=== PATIENT | male | born 1960 | race Caucasian/White ===

== ENCOUNTER 2022-12-12 13:04 | Inpatient (IN) | payer MEDICAID ==
[~2022-12-12] VITALS: Ht 165.1 cm; Wt 73.8 kg
[~2022-12-12 13:04] MED LIST: ETOMIDATE 2MG/ML 10ML VIAL IV ONE
[2022-12-12] MEDS ORDERED: SODIUM CHLORIDE 0.9% 1,000 ML IV ONE (13:30)
[2022-12-12] MEDS ORDERED: CEFTRIAXONE 2GM/50ML (ADDEASE) 50 ML IV ONE (13:30)
[2022-12-12] MEDS ORDERED: CEFTRIAXONE 2 G in DEXTROSE 5% WATER 50 ML IV NR (14:00)
[2022-12-12 14:10] LABS: HEMATOCRIT. 30.9 % (42.0-52.0); MEAN CORPUSCULAR HEMOGLOBIN 27.6 pg (28.0-32.0); MEAN CORPUSCULAR VOLUME 84.9 fL (80.0-94.0); MEAN PLATELET VOLUME 7.8 fl (7.4-10.4); PLATELET 619 x1000/uL (130-400); RED BLOOD CELL COUNT 3.63 mill/uL (4.7-6.1); RED CELL DISTRIBUTION WIDTH 14.7 % (11.6-14.6)
[2022-12-12 14:15] LABS: CHLORIDE 96 mEq/L (98-107)
[2022-12-12 14:18] LABS: INR 1.3; PROTHROMBIN TIME 13.5 sec (9.6-11.0)
[2022-12-12 14:30] LABS: PLATELET ESTIMATE INCREASED
[2022-12-12 14:31] LABS: CREATINE KINASE 133 IU/L (39-308); ETHANOL BLOOD < 10 mg/dL
[2022-12-12] MEDS ORDERED: SODIUM POLYSTYRENE SULFONATE 15 G/60 ML BOT PO ONE (14:45)
[2022-12-12] MEDS ORDERED: CALCIUM GLUCONATE 1,000 MG in DEXT 5% WATER 100 ML IV ONE (14:45)
[2022-12-12] MEDS ORDERED: INSULIN REGULAR (HUMULIN R) 300UNITS/3ML VIAL IV ONE (14:45)
[2022-12-12] MEDS ORDERED: CALCIUM GLUCONATE 1GM PREMIX 50 ML IV ONE (14:45)
[2022-12-12] MEDS ORDERED: SODIUM BICARBONATE 8.4% 1 MEQ/ML 50ML SYR IV ONE ×2 (14:45→16:15)
[2022-12-12] MEDS ORDERED: CALCIUM GLUCONATE 100MG/ML 10ML VIAL IV ONE (14:45)
[2022-12-12] MEDS ORDERED: LACTULOSE 20G/30ML UDC PO ONE (14:45)
[2022-12-12] MEDS ORDERED: FUROSEMIDE 100MG/10ML VIAL IV ONE (14:45)
[2022-12-12] MEDS ORDERED: DEXTROSE 50% WATER 50ML SYRINGE IV ONE (14:45)
[2022-12-12] MEDS: ALBUTEROL (0.083%) 2.5MG/3ML NEB HHN SCH ×3 (14:49→15:56)
[2022-12-12] MEDS ORDERED: CALCIUM GLUCONATE 100MG/ML 10ML VIAL IV NR (15:00)
[2022-12-12] MEDS ORDERED: CALCIUM GLUCONATE 1GM PREMIX 50 ML IV NR (15:00)
[2022-12-12] MEDS ORDERED: SODIUM BICARBONATE 8.4% 1 MEQ/ML 50ML SYR IV NR (15:15)
[2022-12-12 15:58] LABS: BG BASE EXCESS -5.7 mmol/L (-2.0-2.0); BG CARBOXYHEMOGLOBIN 0.3 % (0.5-1.5); BG DEOXYHEMOGLOBIN 3.4 % (0.0-5.0); BG FRACTION INSPIRED OXYGEN 60; BG HCO3 ACT 16.8 mmol/L (22.0-26.0); BG METHEMOGLOBIN 0.5 % (0.0-1.5); BG OXYGEN SATURATION 96.6 % (92.0-98.5); BG OXYHEMOGLOBIN 95.8 % (94.0-97.0); BG PCO2 23.3 mmHg (35.0-45.0); BG PH 7.477 (7.350-7.450); BG PO2 93.2 mmHg (75.0-100.0); BG SAMPLE SITE RIGHT RADIAL; BG TOTAL HEMOGLOBIN 8.5 g/dL (12.0-18.0); BG VENT MODE HHN
[2022-12-12] MEDS ORDERED: ROCURONIUM BROMIDE 10MG/ML VIAL 5ML IV ONE (16:15)
[2022-12-12] MEDS ORDERED: PROPOFOL 200MG/20ML VIAL IV ONE (16:15)
[2022-12-12] MEDS ORDERED: ETOMIDATE 2MG/ML 10ML VIAL IV ONE (16:15)
[2022-12-12] MEDS: SODIUM BICARBONATE 150 MEQ in DEXTROSE 5% WATER 1,000 ML IV SCH (18:01)
[2022-12-12 19:06] LABS: HEPATITIS B SURFACE ANTIGEN NEGATIVE
[2022-12-12 19:21] LABS: CLARITY URINE CLOUDY (CLEAR); COLOR URINE DARK YELLOW (YELLOW); KETONES URINE NEGATIVE (NEGATIVE); LEUKOCYTE ESTERASE URINE TRACE (NEGATIVE); NITRITE URINE NEGATIVE (NEGATIVE); OCCULT BLOOD URINE NEGATIVE (NEGATIVE); PROTEIN URINE TRACE (NEGATIVE); SPECIFIC GRAVITY URINE 1.015 (1.005-1.030)
[2022-12-12 19:37] LABS: *AMPHETAMINES SCREEN URINE NEGATIVE (NEGATIVE); *BARBITURATES SCREEN URINE NEGATIVE (NEGATIVE); *BENZODIAZEPINES SCREEN URINE NEGATIVE (NEGATIVE); *COCAINE SCREEN URINE NEGATIVE (NEGATIVE); CANNABINOID URINE SCREEN NEGATIVE (NEGATIVE); METHADONE URINE SCREEN NEGATIVE (NEGATIVE); OPIATES URINE SCREEN NEGATIVE (NEGATIVE); PHENCYCLIDINE URINE SCREEN NEGATIVE (NEGATIVE)
[2022-12-12] MEDS ORDERED: PROPOFOL 10MG/ML 100ML 100 ML IV ONE (20:00)
[2022-12-12 20:13] LABS: BG BASE EXCESS -6.6 mmol/L (-2.0-2.0); BG CARBOXYHEMOGLOBIN 0.3 % (0.5-1.5); BG DEOXYHEMOGLOBIN 2.4 % (0.0-5.0); BG FRACTION INSPIRED OXYGEN 40; BG HCO3 ACT 17.7 mmol/L (22.0-26.0); BG METHEMOGLOBIN 0.4 % (0.0-1.5); BG OXYGEN SATURATION 97.6 % (92.0-98.5); BG OXYHEMOGLOBIN 96.9 % (94.0-97.0); BG PCO2 31.1 mmHg (35.0-45.0); BG PH 7.373 (7.350-7.450); BG PO2 116.8 mmHg (75.0-100.0); BG SAMPLE SITE RIGHT FEMORAL; BG TOTAL HEMOGLOBIN 10.9 g/dL (12.0-18.0); BG VENT MODE VENT - AC
[2022-12-12] MEDS ORDERED: VANCOMYCIN 1.25GM PMX (XELLIA) 250 ML IV NR (22:15)
[2022-12-12 22:30] VITALS: BP 134/84
[2022-12-12 23:00] VITALS: BP 129/71
[2022-12-13] VITALS (64 sets, daily range): BP systolic 78–137; BP diastolic 42–85
[2022-12-13] MEDS ORDERED: PROPOFOL 10MG/ML 100ML 100 ML IV PRN (00:15)
[2022-12-13] MEDS: PANTOPRAZOLE SODIUM 40 MG/VIAL IV SCH ×2 (00:15→09:37)
[2022-12-13] MEDS: LACTULOSE 20G/30ML UDC PO SCH ×5 (00:15→23:34)
[2022-12-13] MEDS ORDERED: IPRATROPIUM/ALBUTEROL 0.5-3(2.5)MG/3ML NEB NEB PRN (00:15)
[2022-12-13] MEDS ORDERED: PIPERACILLIN/TAZ 3.375G PREMIX 50 ML IV SCH (00:15)
[2022-12-13] MEDS ORDERED: IPRATROPIUM BROMIDE (0.02%) 0.5MG/2.5ML NEB HHN PRN (00:30)
[2022-12-13] MEDS ORDERED: LACTULOSE ENEMA 1,000ML BOTTLE PR NR (01:00)
[2022-12-13] MEDS: PIPERACILLIN/TAZOBACTAM 3.375 G in DEXTROSE 5% WATER 50 ML IV SCH ×3 (01:30→22:36)
[2022-12-13] MEDS: SODIUM BICARBONATE 150 MEQ in DEXTROSE 5% WATER 1,000 ML IV SCH ×5 (01:31→22:37)
[2022-12-13 01:48] LABS: BG BASE EXCESS -2.8 mmol/L (-2.0-2.0); BG CARBOXYHEMOGLOBIN 0.3 % (0.5-1.5); BG DEOXYHEMOGLOBIN 6.8 % (0.0-5.0); BG FRACTION INSPIRED OXYGEN 40; BG HCO3 ACT 18.9 mmol/L (22.0-26.0); BG OXYGEN SATURATION 93.2 % (92.0-98.5); BG OXYHEMOGLOBIN 92.9 % (94.0-97.0); BG PCO2 24.4 mmHg (35.0-45.0); BG PH 7.508 (7.350-7.450); BG PO2 68.1 mmHg (75.0-100.0); BG SAMPLE SITE RIGHT BRACHIAL; BG TOTAL HEMOGLOBIN 10.9 g/dL (12.0-18.0); BG VENT MODE VENT - AC
[2022-12-13] MEDS: LINEZOLID 600 MG PREMIX 300 ML IV SCH ×2 (02:08→13:38)
[2022-12-13 05:39] LABS: HEMATOCRIT. 26.6 % (42.0-52.0); HEMOGLOBIN. 8.8 g/dL (14.0-18.0); MEAN CORPUSCULAR HEMOGLOBIN 28.4 pg (28.0-32.0); MEAN CORPUSCULAR VOLUME 85.8 fL (80.0-94.0); MEAN PLATELET VOLUME 7.9 fl (7.4-10.4); PLATELET 400 x1000/uL (130-400); RED CELL DISTRIBUTION WIDTH 14.8 % (11.6-14.6)
[2022-12-13 06:02] LABS: CHLORIDE 94 mEq/L (98-107)
[2022-12-13 08:33] LABS: BG BASE EXCESS -1.8 mmol/L (-2.0-2.0); BG CARBOXYHEMOGLOBIN 0.3 % (0.5-1.5); BG DEOXYHEMOGLOBIN 4.2 % (0.0-5.0); BG FRACTION INSPIRED OXYGEN 60; BG HCO3 ACT 19.3 mmol/L (22.0-26.0); BG METHEMOGLOBIN 0.1 % (0.0-1.5); BG OXYGEN SATURATION 95.8 % (92.0-98.5); BG OXYHEMOGLOBIN 95.4 % (94.0-97.0); BG PCO2 21.7 mmHg (35.0-45.0); BG PH 7.568 (7.350-7.450); BG PO2 82.8 mmHg (75.0-100.0); BG SAMPLE SITE RIGHT BRACHIAL; BG TOTAL HEMOGLOBIN 8.9 g/dL (12.0-18.0); BG TOTAL RESPIRATORY RATE 17 b/min; BG VENT MODE VENT - AC
[2022-12-13] MEDS ORDERED: DEXTROSE 50% WATER 50ML SYRINGE IV NR (08:45)
[2022-12-13] MEDS ORDERED: INSULIN REGULAR (HUMULIN R) 300UNITS/3ML VIAL IV NR (08:45)
[2022-12-13] MEDS ORDERED: SODIUM BICARBONATE 8.4% 1 MEQ/ML 50ML SYR IV NR (08:45)
[2022-12-13] MEDS ORDERED: CALCIUM CHLORIDE 1,000 MG in DEXT 5% WATER 90 ML IV NR (10:00)
[2022-12-13] MEDS ORDERED: PHENYLEPHRINE 50 MG in DEXT 5% WATER 245 ML IV PRN (10:00)
[2022-12-13] MEDS: PHENYLEPHRINE 50 MG in DEXT 5% WATER 245 ML IV PRN ×2 (11:06→22:38)
[2022-12-13 12:32] LABS: PLATELET ESTIMATE NORMAL
[2022-12-13] MEDS ORDERED: FENTANYL CITRATE 2,500 MCG in SODIUM CHLORIDE 0.9% 200 ML IV PRN (14:15)
[2022-12-13] MEDS ORDERED: MIDAZOLAM HCL 100 MG in SODIUM CHLORIDE 0.9% 100 ML IV PRN (14:15)
[2022-12-13] MEDS ORDERED: FENTANYL 2500MCG/250ML PMX 250 ML IV ONE (14:15)
[2022-12-13] MEDS ORDERED: MIDAZOLAM 100MG/100ML PMX 100 ML IV PRN (14:15)
[2022-12-13] MEDS ORDERED: ALBUMIN HUMAN 25GM/100ML (25%) IV NR (15:45)
[2022-12-13] MEDS ORDERED: VASOPRESSIN 20 UNIT in SODIUM CHLORIDE 0.9% 99 ML IV PRN (15:45)
[2022-12-13] MEDS: DEXT 5%/0.9% NACL 1,000 ML IV SCH (23:35)
[2022-12-14] VITALS (95 sets, daily range): BP systolic 78–116; BP diastolic 46–77
[2022-12-14] MEDS: LINEZOLID 600 MG PREMIX 300 ML IV SCH ×2 (01:57→13:57)
[2022-12-14] MEDS: PHENYLEPHRINE 50 MG in DEXT 5% WATER 245 ML IV PRN ×3 (05:11→18:05)
[2022-12-14 06:01] LABS: CHLORIDE 87 mEq/L (98-107)
[2022-12-14 06:08] LABS: PHOSPHORUS 5.2 mg/dL (2.5-4.9)
[2022-12-14] MEDS: LACTULOSE 20G/30ML UDC PO SCH ×4 (07:05→23:42)
[2022-12-14 08:13] LABS: BG BASE EXCESS 1.8 mmol/L (-2.0-2.0); BG CARBOXYHEMOGLOBIN 0.3 % (0.5-1.5); BG DEOXYHEMOGLOBIN 0.7 % (0.0-5.0); BG FRACTION INSPIRED OXYGEN 60; BG HCO3 ACT 23.3 mmol/L (22.0-26.0); BG METHEMOGLOBIN 0.3 % (0.0-1.5); BG OXYGEN SATURATION 99.3 % (92.0-98.5); BG OXYHEMOGLOBIN 98.7 % (94.0-97.0); BG PCO2 26.3 mmHg (35.0-45.0); BG PH 7.565 (7.350-7.450); BG PO2 230.1 mmHg (75.0-100.0); BG SAMPLE SITE RIGHT RADIAL; BG TOTAL HEMOGLOBIN 9.7 g/dL (12.0-18.0); BG TOTAL RESPIRATORY RATE 18 b/min; BG VENT MODE VENT - AC
[2022-12-14] MEDS: PIPERACILLIN/TAZOBACTAM 3.375 G in DEXTROSE 5% WATER 50 ML IV SCH ×2 (09:03→21:09)
[2022-12-14] MEDS: PANTOPRAZOLE SODIUM 40 MG/VIAL IV SCH (09:03)
[2022-12-14 09:38] LABS: HEMATOCRIT. 28.6 % (42.0-52.0); HEMOGLOBIN. 9.3 g/dL (14.0-18.0); MEAN CORPUSCULAR HEMOGLOBIN 27.8 pg (28.0-32.0); MEAN CORPUSCULAR VOLUME 85.7 fL (80.0-94.0); MEAN PLATELET VOLUME 8.1 fl (7.4-10.4); PLATELET 279 x1000/uL (130-400); RED BLOOD CELL COUNT 3.34 mill/uL (4.7-6.1); RED CELL DISTRIBUTION WIDTH 14.8 % (11.6-14.6)
[2022-12-14 10:16] LABS: PLATELET ESTIMATE NORMAL
[2022-12-14] MEDS: DEXT 5%/0.9% NACL 1,000 ML IV SCH (12:17)
[2022-12-14] MEDS: IPRATROPIUM BROMIDE (0.02%) 0.5MG/2.5ML NEB HHN PRN (16:19)
[2022-12-14] MEDS: ALBUTEROL (0.083%) 2.5MG/3ML NEB HHN PRN (16:19)
[2022-12-14] MEDS: LORAZEPAM 2MG/ML CPJ IV PRN (16:31)
[2022-12-14] MEDS ORDERED: ONDANSETRON HCL 4MG/2ML INJ IV PRN (18:00)
[2022-12-14] MEDS ORDERED: LEVETIRACETAM 500MG PREMIX 100 ML IV SCH (19:00)
[2022-12-14] MEDS ORDERED: LEVETIRACETAM 1,000 MG in SODIUM CHLORIDE 0.9% 100 ML IV SCH (19:45)
[2022-12-14 20:20] LABS: *AMPHETAMINES SCREEN URINE NEGATIVE (NEGATIVE); *BARBITURATES SCREEN URINE NEGATIVE (NEGATIVE); *BENZODIAZEPINES SCREEN URINE NEGATIVE (NEGATIVE); *COCAINE SCREEN URINE NEGATIVE (NEGATIVE); CANNABINOID URINE SCREEN NEGATIVE (NEGATIVE); METHADONE URINE SCREEN NEGATIVE (NEGATIVE); OPIATES URINE SCREEN NEGATIVE (NEGATIVE); PHENCYCLIDINE URINE SCREEN NEGATIVE (NEGATIVE)
[2022-12-14] MEDS ORDERED: LEVETIRACETAM 500 MG in SODIUM CHLORIDE 0.9% 100 ML IV SCH (21:00)
[2022-12-14] MEDS: LEVETIRACETAM 1000MG PREMIX 100 ML IV SCH (21:09)
[2022-12-15] VITALS (101 sets, daily range): BP systolic 63–142; BP diastolic 27–91
[2022-12-15] MEDS: DEXT 5%/0.9% NACL 1,000 ML IV SCH ×2 (01:20→15:30)
[2022-12-15] MEDS: LINEZOLID 600 MG PREMIX 300 ML IV SCH ×2 (01:20→12:51)
[2022-12-15] MEDS: PHENYLEPHRINE 50 MG in DEXT 5% WATER 245 ML IV PRN ×2 (01:38→08:54)
[2022-12-15 05:52] LABS: HEMATOCRIT. 28.2 % (42.0-52.0); MEAN CORPUSCULAR HEMOGLOBIN 27.3 pg (28.0-32.0); MEAN CORPUSCULAR VOLUME 85.6 fL (80.0-94.0); MEAN PLATELET VOLUME 8.2 fl (7.4-10.4); PLATELET 224 x1000/uL (130-400); RED BLOOD CELL COUNT 3.29 mill/uL (4.7-6.1); RED CELL DISTRIBUTION WIDTH 14.4 % (11.6-14.6)
[2022-12-15 05:57] LABS: CHLORIDE 90 mEq/L (98-107)
[2022-12-15] MEDS: LACTULOSE 20G/30ML UDC PO SCH ×4 (06:07→23:21)
[2022-12-15] MEDS: LEVETIRACETAM 1000MG PREMIX 100 ML IV SCH ×2 (08:38→21:33)
[2022-12-15] MEDS: PANTOPRAZOLE SODIUM 40 MG/VIAL IV SCH (08:38)
[2022-12-15] MEDS: PIPERACILLIN/TAZOBACTAM 3.375 G in DEXTROSE 5% WATER 50 ML IV SCH ×2 (08:39→21:33)
[2022-12-15] MEDS: ALBUTEROL (0.083%) 2.5MG/3ML NEB HHN PRN (08:56)
[2022-12-15] MEDS: IPRATROPIUM BROMIDE (0.02%) 0.5MG/2.5ML NEB HHN PRN (08:56)
[2022-12-15 09:14] LABS: BG BASE EXCESS -0.2 mmol/L (-2.0-2.0); BG CARBOXYHEMOGLOBIN 0.1 % (0.5-1.5); BG HCO3 ACT 23.5 mmol/L (22.0-26.0); BG METHEMOGLOBIN 0.4 % (0.0-1.5); BG OXYHEMOGLOBIN 97.5 % (94.0-97.0); BG PCO2 34.8 mmHg (35.0-45.0); BG PH 7.448 (7.350-7.450); BG PO2 119.6 mmHg (75.0-100.0); BG TOTAL HEMOGLOBIN 10.4 g/dL (12.0-18.0)
[2022-12-15 09:16] LABS: BG FRACTION INSPIRED OXYGEN 45; BG SAMPLE SITE RIGHT RADIAL; BG VENT MODE VENT - AC
[2022-12-15 10:04] LABS: PLATELET ESTIMATE NORMAL
[2022-12-15] MEDS: HEPARIN 5000 UNITS/ML VIAL SUBCUT SCH (21:00)
[2022-12-16] VITALS (86 sets, daily range): BP systolic 84–128; BP diastolic 36–80
[2022-12-16] MEDS: LINEZOLID 600 MG PREMIX 300 ML IV SCH ×2 (01:09→12:42)
[2022-12-16 05:27] LABS: HEMATOCRIT. 22.2 % (42.0-52.0); HEMOGLOBIN. 7.2 g/dL (14.0-18.0); MEAN CORPUSCULAR HEMOGLOBIN 27.1 pg (28.0-32.0); MEAN CORPUSCULAR VOLUME 84.2 fL (80.0-94.0); PLATELET 105 x1000/uL (130-400); RED BLOOD CELL COUNT 2.64 mill/uL (4.7-6.1); RED CELL DISTRIBUTION WIDTH 14.8 % (11.6-14.6)
[2022-12-16] MEDS: LACTULOSE 20G/30ML UDC PO SCH ×4 (05:30→23:32)
[2022-12-16] MEDS: DEXT 5%/0.9% NACL 1,000 ML IV SCH ×2 (05:30→17:55)
[2022-12-16 05:56] LABS: CHLORIDE 99 mEq/L (98-107)
[2022-12-16] MEDS ORDERED: SODIUM BICARBONATE 4% (2.4MEQ) 5ML VIAL IV ONE (08:11)
[2022-12-16] MEDS ORDERED: LIDOCAINE HCL 1% 10 MG/ML 10ML VIAL ONE (08:12)
[2022-12-16] MEDS: LEVETIRACETAM 1000MG PREMIX 100 ML IV SCH ×2 (08:22→20:51)
[2022-12-16] MEDS: HEPARIN 5000 UNITS/ML VIAL SUBCUT SCH (08:22)
[2022-12-16] MEDS: PANTOPRAZOLE SODIUM 40 MG/VIAL IV SCH (08:22)
[2022-12-16 08:41] LABS: BG CARBOXYHEMOGLOBIN 0.3 % (0.5-1.5); BG FRACTION INSPIRED OXYGEN 40; BG METHEMOGLOBIN 0.1 % (0.0-1.5); BG OXYHEMOGLOBIN 98.6 % (94.0-97.0); BG PCO2 26.1 mmHg (35.0-45.0); BG PH 7.543 (7.350-7.450); BG PO2 171.6 mmHg (75.0-100.0); BG SAMPLE SITE RIGHT RADIAL; BG TOTAL HEMOGLOBIN 8.2 g/dL (12.0-18.0); BG VENT MODE VENT - AC
[2022-12-16 09:20] LABS: PLATELET ESTIMATE DECREASED
[2022-12-16] MEDS: PIPERACILLIN/TAZOBACTAM 3.375 G in DEXTROSE 5% WATER 50 ML IV SCH ×2 (09:35→20:52)
[2022-12-16] MEDS: IPRATROPIUM/ALBUTEROL 0.5-3(2.5)MG/3ML NEB HHN SCH (20:09)
[2022-12-17] VITALS (99 sets, daily range): BP systolic 68–141; BP diastolic 49–105
[2022-12-17] MEDS: IPRATROPIUM/ALBUTEROL 0.5-3(2.5)MG/3ML NEB HHN SCH ×4 (01:41→20:36)
[2022-12-17] MEDS: LINEZOLID 600 MG PREMIX 300 ML IV SCH ×2 (01:59→12:32)
[2022-12-17 05:54] LABS: HEMATOCRIT. 24.7 % (42.0-52.0); HEMOGLOBIN. 8.2 g/dL (14.0-18.0); MEAN CORPUSCULAR HEMOGLOBIN 28.1 pg (28.0-32.0); MEAN CORPUSCULAR VOLUME 84.8 fL (80.0-94.0); MEAN PLATELET VOLUME 9.8 fl (7.4-10.4); PLATELET 62 x1000/uL (130-400); RED BLOOD CELL COUNT 2.92 mill/uL (4.7-6.1); RED CELL DISTRIBUTION WIDTH 14.6 % (11.6-14.6)
[2022-12-17] MEDS: LACTULOSE 20G/30ML UDC PO SCH ×3 (05:54→17:46)
[2022-12-17] MEDS: DEXT 5%/0.9% NACL 1,000 ML IV SCH ×2 (05:54→20:05)
[2022-12-17 06:15] LABS: CHLORIDE 101 mEq/L (98-107)
[2022-12-17 08:29] LABS: BG BASE EXCESS 0.2 mmol/L (-2.0-2.0); BG CARBOXYHEMOGLOBIN 0.3 % (0.5-1.5); BG DEOXYHEMOGLOBIN 1.2 % (0.0-5.0); BG FRACTION INSPIRED OXYGEN 35; BG HCO3 ACT 22.2 mmol/L (22.0-26.0); BG METHEMOGLOBIN 0.6 % (0.0-1.5); BG OXYGEN SATURATION 98.8 % (92.0-98.5); BG OXYHEMOGLOBIN 97.9 % (94.0-97.0); BG PCO2 25.9 mmHg (35.0-45.0); BG PO2 181.6 mmHg (75.0-100.0); BG SAMPLE SITE RIGHT BRACHIAL; BG TOTAL HEMOGLOBIN 7.8 g/dL (12.0-18.0); BG VENT MODE VENT - AC
[2022-12-17 08:51] LABS: NUCLEATED RED BLOOD CELLS 1 /100 WBC
[2022-12-17 08:52] LABS: PLATELET ESTIMATE DECREASED
[2022-12-17] MEDS: PANTOPRAZOLE SODIUM 40 MG/VIAL IV SCH (09:00)
[2022-12-17] MEDS: LEVETIRACETAM 1000MG PREMIX 100 ML IV SCH ×2 (09:00→21:26)
[2022-12-17] MEDS: PIPERACILLIN/TAZOBACTAM 3.375 G in DEXTROSE 5% WATER 50 ML IV SCH (09:00)
[2022-12-17] MEDS: LORAZEPAM 2MG/ML CPJ IV PRN ×2 (09:07→14:34)
[2022-12-17] MEDS ORDERED: SODIUM CHLORIDE 0.9% 500 ML IV ONE (16:00)
[2022-12-17] MEDS ORDERED: CEFAZOLIN 1000MG PREMIX 50 ML IV SCH (17:00)
[2022-12-17] MEDS ORDERED: MORPHINE SULFATE 2 MG/ML CPJ (NOT FOR IM USE) IV NR (19:00)
[2022-12-17] MEDS: CEFAZOLIN 1000MG PREMIX 50 ML IV SCH (21:30)
[2022-12-18] VITALS (96 sets, daily range): BP systolic 82–142; BP diastolic 49–106
[2022-12-18] MEDS: LACTULOSE 20G/30ML UDC PO SCH ×4 (01:04→17:35)
[2022-12-18] MEDS: IPRATROPIUM/ALBUTEROL 0.5-3(2.5)MG/3ML NEB HHN SCH ×4 (01:50→20:05)
[2022-12-18 05:48] LABS: HEMATOCRIT. 23.7 % (42.0-52.0); HEMOGLOBIN. 7.8 g/dL (14.0-18.0); MEAN CORPUSCULAR HEMOGLOBIN 27.6 pg (28.0-32.0); MEAN CORPUSCULAR VOLUME 84.2 fL (80.0-94.0); MEAN PLATELET VOLUME 10.7 fl (7.4-10.4); RED BLOOD CELL COUNT 2.81 mill/uL (4.7-6.1); RED CELL DISTRIBUTION WIDTH 14.6 % (11.6-14.6)
[2022-12-18] MEDS ORDERED: METOCLOPRAMIDE HCL 10MG/2ML VIAL IV SCH (06:00)
[2022-12-18 06:27] LABS: PLATELET 38 x1000/uL (130-400)
[2022-12-18] MEDS: LEVETIRACETAM 1000MG PREMIX 100 ML IV SCH ×2 (08:25→20:36)
[2022-12-18] MEDS: DEXT 5%/0.9% NACL 1,000 ML IV SCH ×2 (08:26→22:09)
[2022-12-18] MEDS: PANTOPRAZOLE SODIUM 40 MG/VIAL IV SCH ×2 (08:26→20:35)
[2022-12-18 09:02] LABS: BG BASE EXCESS -1.7 mmol/L (-2.0-2.0); BG CARBOXYHEMOGLOBIN 0.3 % (0.5-1.5); BG DEOXYHEMOGLOBIN 12.4 % (0.0-5.0); BG FRACTION INSPIRED OXYGEN 30; BG HCO3 ACT 22.3 mmol/L (22.0-26.0); BG METHEMOGLOBIN 0.1 % (0.0-1.5); BG OXYGEN SATURATION 87.6 % (92.0-98.5); BG OXYHEMOGLOBIN 87.2 % (94.0-97.0); BG PCO2 34.7 mmHg (35.0-45.0); BG PH 7.425 (7.350-7.450); BG PO2 59.5 mmHg (75.0-100.0); BG SAMPLE SITE LEFT RADIAL; BG TOTAL HEMOGLOBIN 9.5 g/dL (12.0-18.0); BG TOTAL RESPIRATORY RATE 12 b/min; BG VENT MODE VENT - AC
[2022-12-18 10:31] LABS: PLATELET ESTIMATE MARKEDLY DECREASED
[2022-12-18] MEDS: METOCLOPRAMIDE HCL 10MG/2ML VIAL IV SCH ×2 (14:57→22:09)
[2022-12-18 16:41] LABS: INR 1.3; PROTHROMBIN TIME 14.2 sec (9.6-11.0)
[2022-12-18] MEDS: OCTREOTIDE 1,000 MCG in SODIUM CHLORIDE 0.9% 98 ML IV SCH (17:36)
[2022-12-18] MEDS: CEFAZOLIN 1000MG PREMIX 50 ML IV SCH (20:36)
[2022-12-19] VITALS (111 sets, daily range): BP systolic 78–132; BP diastolic 51–99
[2022-12-19] MEDS: LACTULOSE 20G/30ML UDC PO SCH ×4 (00:15→17:42)
[2022-12-19] MEDS: IPRATROPIUM/ALBUTEROL 0.5-3(2.5)MG/3ML NEB HHN SCH ×4 (01:43→20:30)
[2022-12-19 05:43] LABS: BASOPHILS % 0.2 % (0.0-2.0); EOSINOPHILS % 0.8 % (0.0-5.0); HEMATOCRIT. 21.8 % (42.0-52.0); HEMOGLOBIN. 7.1 g/dL (14.0-18.0); MEAN CORPUSCULAR HEMOGLOBIN 27.8 pg (28.0-32.0); MEAN CORPUSCULAR VOLUME 85.8 fL (80.0-94.0); MEAN PLATELET VOLUME 9.1 fl (7.4-10.4); MONOCYTES % 9.2 % (2.0-8.0); NEUTROPHILS % 83.8 % (40.0-76.0); RED BLOOD CELL COUNT 2.54 mill/uL (4.7-6.1)
[2022-12-19 05:50] LABS: CHLORIDE 111 mEq/L (98-107)
[2022-12-19 05:54] LABS: INR 1.4; PROTHROMBIN TIME 14.6 sec (9.6-11.0)
[2022-12-19 06:00] LABS: TOTAL IRON BINDING CAPACITY 176 ug/dL (250-450)
[2022-12-19 06:14] LABS: PLATELET 34 x1000/uL (130-400)
[2022-12-19] MEDS: METOCLOPRAMIDE HCL 10MG/2ML VIAL IV SCH ×3 (06:36→22:31)
[2022-12-19 07:36] LABS: FERRITIN 127 ng/mL (22-322)
[2022-12-19 07:40] LABS: BG BASE EXCESS -3.8 mmol/L (-2.0-2.0); BG CARBOXYHEMOGLOBIN 0.4 % (0.5-1.5); BG DEOXYHEMOGLOBIN 1.4 % (0.0-5.0); BG HCO3 ACT 19.8 mmol/L (22.0-26.0); BG METHEMOGLOBIN 0.7 % (0.0-1.5); BG OXYGEN SATURATION 98.6 % (92.0-98.5); BG OXYHEMOGLOBIN 97.5 % (94.0-97.0); BG PCO2 30.3 mmHg (35.0-45.0); BG PH 7.434 (7.350-7.450); BG PO2 139.2 mmHg (75.0-100.0); BG SAMPLE SITE RIGHT BRACHIAL; BG TOTAL HEMOGLOBIN 7.9 g/dL (12.0-18.0); BG VENT MODE VENT - AC
[2022-12-19] MEDS: LEVETIRACETAM 1000MG PREMIX 100 ML IV SCH ×2 (08:58→20:52)
[2022-12-19] MEDS: PANTOPRAZOLE SODIUM 40 MG/VIAL IV SCH ×2 (08:58→20:52)
[2022-12-19 10:01] LABS: VITAMIN B12 SERUM > 2000.0 pg/mL (211-911)
[2022-12-19] MEDS ORDERED: PHYTONADIONE 10MG/ML AMP SUBCUT SCH (10:30)
[2022-12-19] MEDS: OCTREOTIDE 1,000 MCG in SODIUM CHLORIDE 0.9% 98 ML IV SCH (13:11)
[2022-12-19 14:49] LABS: MEAN CORPUSCULAR HEMOGLOBIN 27.7 pg (28.0-32.0); MEAN CORPUSCULAR VOLUME 84.8 fL (80.0-94.0); MEAN PLATELET VOLUME 9.1 fl (7.4-10.4); RED CELL DISTRIBUTION WIDTH 14.9 % (11.6-14.6)
[2022-12-19 14:58] LABS: INR 1.2
[2022-12-19 15:02] LABS: HEMATOCRIT. 18.7 % (42.0-52.0); HEMOGLOBIN. 6.1 g/dL (14.0-18.0)
[2022-12-19 15:03] LABS: PLATELET 46 x1000/uL (130-400)
[2022-12-19] MEDS: DEXT 5%/0.9% NACL 1,000 ML IV SCH (16:43)
[2022-12-19] MEDS: CEFAZOLIN 1000MG PREMIX 50 ML IV SCH (20:52)
[2022-12-19 21:29] LABS: PLATELET ESTIMATE DECREASED
[2022-12-19 23:49] LABS: HEMATOCRIT 30.7 % (42.0-52.0); HEMOGLOBIN 10.4 g/dL (14.0-18.0)
[2022-12-19 23:53] LABS: INR 1.2; PROTHROMBIN TIME 13.2 sec (9.6-11.0)
[2022-12-20] VITALS (97 sets, daily range): BP systolic 102–136; BP diastolic 61–80
[2022-12-20] MEDS: LACTULOSE 20G/30ML UDC PO SCH ×4 (00:15→18:52)
[2022-12-20] MEDS: IPRATROPIUM/ALBUTEROL 0.5-3(2.5)MG/3ML NEB HHN SCH ×4 (02:28→20:44)
[2022-12-20 05:26] LABS: HEMATOCRIT. 31.7 % (42.0-52.0); MEAN CORPUSCULAR HEMOGLOBIN 28.8 pg (28.0-32.0); MEAN CORPUSCULAR VOLUME 82.9 fL (80.0-94.0); MEAN PLATELET VOLUME 8.4 fl (7.4-10.4); PLATELET 68 x1000/uL (130-400); RED BLOOD CELL COUNT 3.82 mill/uL (4.7-6.1)
[2022-12-20 05:50] LABS: INR 1.3; PROTHROMBIN TIME 13.5 sec (9.6-11.0)
[2022-12-20] MEDS: METOCLOPRAMIDE HCL 10MG/2ML VIAL IV SCH ×3 (05:58→21:52)
[2022-12-20] MEDS: PANTOPRAZOLE SODIUM 40 MG/VIAL IV SCH ×2 (08:57→20:49)
[2022-12-20] MEDS: LEVETIRACETAM 1000MG PREMIX 100 ML IV SCH ×2 (08:57→20:48)
[2022-12-20 09:37] LABS: BG BASE EXCESS -2.8 mmol/L (-2.0-2.0); BG CARBOXYHEMOGLOBIN 0.6 % (0.5-1.5); BG DEOXYHEMOGLOBIN 1.7 % (0.0-5.0); BG FRACTION INSPIRED OXYGEN 30; BG HCO3 ACT 21.3 mmol/L (22.0-26.0); BG METHEMOGLOBIN 0.4 % (0.0-1.5); BG OXYGEN SATURATION 98.3 % (92.0-98.5); BG OXYHEMOGLOBIN 97.3 % (94.0-97.0); BG PCO2 34.7 mmHg (35.0-45.0); BG PH 7.406 (7.350-7.450); BG PO2 135.6 mmHg (75.0-100.0); BG SAMPLE SITE RIGHT RADIAL; BG TOTAL HEMOGLOBIN 11.6 g/dL (12.0-18.0); BG VENT MODE VENT - AC
[2022-12-20 10:06] LABS: PLATELET ESTIMATE DECREASED
[2022-12-20] MEDS: DEXT 5%/0.9% NACL 1,000 ML IV SCH (16:46)
[2022-12-20] MEDS: CEFAZOLIN 1000MG PREMIX 50 ML IV SCH (20:49)
[2022-12-21] VITALS (85 sets, daily range): BP systolic 109–142; BP diastolic 63–89
[2022-12-21] MEDS: LACTULOSE 20G/30ML UDC PO SCH ×4 (00:46→17:32)
[2022-12-21] MEDS: IPRATROPIUM/ALBUTEROL 0.5-3(2.5)MG/3ML NEB HHN SCH ×3 (01:54→13:52)
[2022-12-21] MEDS: METOCLOPRAMIDE HCL 10MG/2ML VIAL IV SCH ×3 (06:18→21:07)
[2022-12-21 06:38] LABS: HEMATOCRIT. 31.7 % (42.0-52.0); HEMOGLOBIN. 10.7 g/dL (14.0-18.0); MEAN CORPUSCULAR HEMOGLOBIN 28.3 pg (28.0-32.0); MEAN CORPUSCULAR VOLUME 83.6 fL (80.0-94.0); MEAN PLATELET VOLUME 8.6 fl (7.4-10.4); PLATELET 51 x1000/uL (130-400); RED CELL DISTRIBUTION WIDTH 14.4 % (11.6-14.6)
[2022-12-21 06:46] LABS: INR 1.3; PROTHROMBIN TIME 13.5 sec (9.6-11.0)
[2022-12-21] MEDS: LEVETIRACETAM 1000MG PREMIX 100 ML IV SCH ×2 (08:34→21:07)
[2022-12-21] MEDS: PANTOPRAZOLE SODIUM 40 MG/VIAL IV SCH ×2 (08:34→21:10)
[2022-12-21 08:59] LABS: PLATELET ESTIMATE DECREASED
[2022-12-21] MEDS: DEXT 5%/0.9% NACL 1,000 ML IV SCH (15:57)
[2022-12-21] MEDS: CEFAZOLIN 1000MG PREMIX 50 ML IV SCH (21:06)
[2022-12-22] VITALS (87 sets, daily range): BP systolic 115–151; BP diastolic 66–90
[2022-12-22] MEDS: LACTULOSE 20G/30ML UDC PO SCH ×4 (01:45→17:53)
[2022-12-22 05:47] LABS: HEMATOCRIT. 35.2 % (42.0-52.0); HEMOGLOBIN. 11.8 g/dL (14.0-18.0); MEAN CORPUSCULAR VOLUME 83.9 fL (80.0-94.0); MEAN PLATELET VOLUME 9.1 fl (7.4-10.4); RED BLOOD CELL COUNT 4.19 mill/uL (4.7-6.1); RED CELL DISTRIBUTION WIDTH 14.3 % (11.6-14.6)
[2022-12-22 05:51] LABS: INR 1.2; PROTHROMBIN TIME 13.2 sec (9.6-11.0)
[2022-12-22] MEDS: METOCLOPRAMIDE HCL 10MG/2ML VIAL IV SCH ×3 (06:25→21:32)
[2022-12-22 08:06] LABS: PLATELET ESTIMATE MARKEDLY DECREASED
[2022-12-22 08:07] LABS: PLATELET 43 x1000/uL (130-400)
[2022-12-22 08:11] LABS: BG BASE EXCESS -2.7 mmol/L (-2.0-2.0); BG CARBOXYHEMOGLOBIN 0.5 % (0.5-1.5); BG DEOXYHEMOGLOBIN 2.3 % (0.0-5.0); BG FRACTION INSPIRED OXYGEN 30; BG HCO3 ACT 20.9 mmol/L (22.0-26.0); BG METHEMOGLOBIN 0.3 % (0.0-1.5); BG OXYGEN SATURATION 97.7 % (92.0-98.5); BG OXYHEMOGLOBIN 96.9 % (94.0-97.0); BG PCO2 32.5 mmHg (35.0-45.0); BG PH 7.427 (7.350-7.450); BG PO2 106.8 mmHg (75.0-100.0); BG SAMPLE SITE RIGHT BRACHIAL; BG TOTAL HEMOGLOBIN 11.7 g/dL (12.0-18.0); BG VENT MODE VENT - AC
[2022-12-22] MEDS ORDERED: FUROSEMIDE 20MG/2ML VIAL IVP SCH (09:00)
[2022-12-22] MEDS: LEVETIRACETAM 1000MG PREMIX 100 ML IV SCH ×3 (09:00→21:32)
[2022-12-22] MEDS: DEXTROSE 5% WATER 1,000 ML IV SCH (09:00)
[2022-12-22] MEDS: PANTOPRAZOLE SODIUM 40 MG/VIAL IV SCH ×2 (09:01→20:40)
[2022-12-22] MEDS ORDERED: POTASSIUM CHLORIDE INJ 40 MEQ in DEXT 5% WATER 250 ML IV SCH (10:00)
[2022-12-22] MEDS ORDERED: IPRATROPIUM/ALBUTEROL 0.5-3(2.5)MG/3ML NEB HHN PRN (16:30)
[2022-12-22] MEDS: IPRATROPIUM/ALBUTEROL 0.5-3(2.5)MG/3ML NEB HHN SCH (20:22)
[2022-12-22] MEDS: CEFAZOLIN 1000MG PREMIX 50 ML IV SCH (20:40)
[2022-12-22] MEDS: LEVETIRACETAM 1,000 MG in SODIUM CHLORIDE 0.9% 100 ML IV SCH (21:32)
[2022-12-22 22:05] LABS: HEMATOCRIT 36.6 % (42.0-52.0); HEMOGLOBIN 11.9 g/dL (14.0-18.0)
[2022-12-22 22:21] LABS: INR 1.2; PROTHROMBIN TIME 13.2 sec (9.6-11.0)
[2022-12-23] VITALS (76 sets, daily range): BP systolic 95–155; BP diastolic 55–113
[2022-12-23] MEDS: IPRATROPIUM/ALBUTEROL 0.5-3(2.5)MG/3ML NEB HHN SCH ×4 (00:20→12:17)
[2022-12-23] MEDS: LACTULOSE 20G/30ML UDC PO SCH ×2 (00:30→06:12)
[2022-12-23 05:31] LABS: HEMATOCRIT. 30.7 % (42.0-52.0); HEMOGLOBIN. 10.1 g/dL (14.0-18.0); MEAN CORPUSCULAR HEMOGLOBIN 27.7 pg (28.0-32.0); MEAN CORPUSCULAR VOLUME 84.1 fL (80.0-94.0); MEAN PLATELET VOLUME 8.9 fl (7.4-10.4); PLATELET 73 x1000/uL (130-400); RED BLOOD CELL COUNT 3.66 mill/uL (4.7-6.1); RED CELL DISTRIBUTION WIDTH 14.2 % (11.6-14.6)
[2022-12-23 05:51] LABS: INR 1.3; PARTIAL THROMBOPLASTIN TIME 30.2 sec (23.4-31.0); PROTHROMBIN TIME 13.7 sec (9.6-11.0)
[2022-12-23] MEDS: METOCLOPRAMIDE HCL 10MG/2ML VIAL IV SCH (06:12)
[2022-12-23] MEDS ORDERED: POTASSIUM CHLORIDE INJ 40 MEQ in DEXT 5% WATER 250 ML IV ONE (08:15)
[2022-12-23] MEDS: LEVETIRACETAM 1,000 MG in SODIUM CHLORIDE 0.9% 100 ML IV SCH (08:43)
[2022-12-23] MEDS: DEXTROSE 5% WATER 1,000 ML IV SCH (08:44)
[2022-12-23] MEDS: PANTOPRAZOLE SODIUM 40 MG/VIAL IV SCH (08:44)
[2022-12-23] MEDS: FUROSEMIDE 40MG/4ML VIAL IVP SCH ×2 (08:57→09:00)
[2022-12-23] MEDS ORDERED: KCL 20MEQ/100ML X 2 FOR TOTAL KCL 40MEQ/200ML IV SCH (09:00)
[2022-12-23] MEDS ORDERED: FUROSEMIDE 20MG/2ML VIAL IVP SCH (09:00)
[2022-12-23 11:14] LABS: PLATELET ESTIMATE DECREASED
[2022-12-23] MEDS ORDERED: LORAZEPAM 2MG/ML CPJ IV NR (12:45)
[2022-12-23] MEDS ORDERED: MORPHINE SULFATE 4 MG/ML CPJ (NOT FOR IM USE) IV NR (12:45)
[2022-12-23] MEDS: MORPHINE SULFATE 250 MG in DEXT 5% WATER 225 ML IV PRN (14:04)
[2022-12-24] VITALS (32 sets, daily range): BP systolic 84–96; BP diastolic 40–60
[2022-12-24] MEDS: MORPHINE SULFATE 250 MG in DEXT 5% WATER 225 ML IV PRN (07:12)
[2022-12-25] VITALS (7 sets, daily range): BP systolic 79–92; BP diastolic 37–48
[2022-12-26 08:00] VITALS: BP 88/45
[2022-12-26 12:00] VITALS: BP 77/42
[2022-12-26 16:00] VITALS: BP 84/33
[2022-12-26 20:00] VITALS: BP 81/36
[2022-12-27] VITALS: BP 72/31
[2022-12-27 04:00] VITALS: BP 79/38
[2022-12-27 08:00] VITALS: BP 75/31
[2022-12-27 12:00] VITALS: BP 73/30
== END 2022-12-27 16:50 | DRG 720 ==
LOC: ER 13:04 → CVICU 17:08 → 6EST 12-24 15:21
PROVIDERS: ADMIT Internal Medicine; ATTEND Internal Medicine
PROC: 5A1955Z Respiratory Ventilation, Greater than 96 Consecutive Hours (ICD-10-PCS; principal; 2022-12-12)
PROC: 0BH17EZ Insertion of Endotracheal Airway into Trachea, Via Natural or Artificial Opening (ICD-10-PCS; 2022-12-12)
PROC: 02H633Z Insertion of Infusion Device into Right Atrium, Percutaneous Approach (ICD-10-PCS; 2022-12-12)
PROC: 5A1D70Z Performance of Urinary Filtration, Intermittent, Less than 6 Hours Per Day (ICD-10-PCS; 2022-12-13)
PROC: 5A1D70Z Performance of Urinary Filtration, Intermittent, Less than 6 Hours Per Day (ICD-10-PCS; 2022-12-15)
PROC: 4A10X4Z Monitoring of Central Nervous Electrical Activity, External Approach (ICD-10-PCS; 2022-12-15)
PROC: 0W9G30Z Drainage of Peritoneal Cavity with Drainage Device, Percutaneous Approach (ICD-10-PCS; 2022-12-16)
PROC: 5A1D70Z Performance of Urinary Filtration, Intermittent, Less than 6 Hours Per Day (ICD-10-PCS; 2022-12-17)
PROC: 30233R1 Transfusion of Nonautologous Platelets into Peripheral Vein, Percutaneous Approach (ICD-10-PCS; 2022-12-18)
PROC: 5A1D70Z Performance of Urinary Filtration, Intermittent, Less than 6 Hours Per Day (ICD-10-PCS; 2022-12-19)
PROC: 30233N1 Transfusion of Nonautologous Red Blood Cells into Peripheral Vein, Percutaneous Approach (ICD-10-PCS; 2022-12-19)
PROC: 30233K1 Transfusion of Nonautologous Frozen Plasma into Peripheral Vein, Percutaneous Approach (ICD-10-PCS; 2022-12-19)
DX: A41.01 Sepsis due to Methicillin susceptible Staphylococcus aureus (principal); K76.7 Hepatorenal syndrome; J96.01 Acute respiratory failure with hypoxia; R65.21 Severe sepsis with septic shock; G93.41 Metabolic encephalopathy; E43 Unspecified severe protein-calorie malnutrition; E72.4 Disorders of ornithine metabolism; D68.9 Coagulation defect, unspecified; K76.82 Hepatic encephalopathy; D69.6 Thrombocytopenia, unspecified; E87.20 Acidosis, unspecified; N17.9 Acute kidney failure, unspecified; E83.51 Hypocalcemia; E87.1 Hypo-osmolality and hyponatremia; Z66 Do not resuscitate; E11.65 Type 2 diabetes mellitus with hyperglycemia; D64.9 Anemia, unspecified; Z51.5 Encounter for palliative care; Z68.27 Body mass index [BMI] 27.0-27.9, adult; E87.5 Hyperkalemia; K74.60 Unspecified cirrhosis of liver; Z20.822 Contact with and (suspected) exposure to COVID-19; B17.9 Acute viral hepatitis, unspecified; N39.0 Urinary tract infection, site not specified; R56.9 Unspecified convulsions; E03.9 Hypothyroidism, unspecified; E87.8 Other disorders of electrolyte and fluid balance, not elsewhere classified; F10.10 Alcohol abuse, uncomplicated; K42.9 Umbilical hernia without obstruction or gangrene; R13.12 Dysphagia, oropharyngeal phase; R18.8 Other ascites; Z74.01 Bed confinement status; Z78.1 Physical restraint status
CPT/HCPCS: 31500; 36415; 36600; 49083; 71045; 74018; 76705; 78580; 80048; 80053; 80076; 80305; 80307; 80320; 80329; 81003; 82140; 82375; 82550; 82607; 82728; 82746; 82805; 82962; 83540; 83550; 83605; 83880; 84100; 84132; 84134; 84145; 84443; 84478; 84484; 85014; 85018; 85025; 85044; 85049; 85379; 85384; 86705; 86709; 86803; 86850; 86900; 86920; 86927; 87070; 87077; 87186; 87340; 87426; 90935; 93005; 93306; 93970; 94002; 94003; 94640; 95822; 99291; A6261; C9113; J0610; J0690; J0696; J1815; J1940; J1953; J2020; J2060; J2250; J2270; J2354; J2370; J2405; J2543; J2704; J2765; J3370; J3430; J3480; J3490; J7030; J7042; J7050; J7060; J7070; P9016; P9017; P9034; P9047; A4315; G0480